=== PATIENT | female | born 1935 | race Caucasian/White ===

== ENCOUNTER 2022-11-25 00:23 | Day surgery (SDC) | payer OTHER ==
[2022-11-25 12:06] LABS: BASOPHILS ABSOLUTE AUTO 0.02 K/mm3 (0.00-0.23); BASOPHILS PERCENT AUTO 0 % (0-2); EOSINOPHILS ABSOLUTE AUTO 0.08 K/mm3 (0.00-0.68); EOSINOPHILS PERCENT AUTO 1 % (0-6); Hematocrit 28.9 % (33.0-51.0); Hemoglobin 9.3 g/dL (11.5-16.0); Mean Corpuscular HGB 33.7 pg (26.0-34.0); Mean Corpuscular HGB Conc 32.2 g/dL (31.5-36.5); Mean Corpuscular Volume 105 fL (80-100); Mean Platelet Volume 9.8 fL (9.1-12.4); Platelet Count 232 K/mm3 (150-400); RDW Coefficient Variation 23.9 % (11.7-14.2); RDW Standard Deviation 87.6 fL (35.1-46.3); Red Blood Cell Count 2.76 M/mm3 (3.80-5.20); White Blood Cell Count 10.22 K/mm3 (4.00-11.30)
[2022-11-25 12:07] LABS: IMMATURE GRAN ABSOLUTE AUTO 0.01 K/mm3 (0.00-0.10); IMMATURE GRAN PERCENT AUTO 0 % (0-1); LYMPHOCYTES ABSOLUTE AUTO 9.75 K/mm3 (0.84-5.20); LYMPHOCYTES PERCENT AUTO 95 % (21-46); MONOCYTES ABSOLUTE AUTO 0.02 K/mm3 (0.16-1.47); MONOCYTES PERCENT AUTO 0 % (4-13); NEUTROPHILS ABSOLUTE AUTO 0.34 K/mm3 (1.96-9.15); NEUTROPHILS PERCENT AUTO 3 % (41-73)
[2022-11-25] MEDS ORDERED: METF500 PO (12:12)
[2022-11-25] MEDS ORDERED: AMLO5 PO (12:13)
[2022-11-25] MEDS ORDERED: VENL37.5 PO (12:13)
[2022-11-25] MEDS ORDERED: PANT40 PO (12:13)
[2022-11-25 12:15] LABS: Albumin, Blood 2.7 g/dL (3.4-5.0); Albumin/Globulin Ratio 0.8 (0.8-1.8); Bilirubin, Total 0.5 mg/dL (0.1-1.0); Bun/Creatinine Ratio 21.8 (12.0-20.0); Calcium, Blood 8.7 mg/dL (8.5-10.1); Creatinine, Blood 1.42 mg/dL (0.40-1.00); Globulin, Blood 3.6 g/dL (2.2-4.0); Potassium, Blood 4.1 mmol/L (3.5-5.5); Total Protein, Blood 6.3 g/dL (6.4-8.2)
[2022-11-25] MEDS ORDERED: COD LIVER OIL PO (12:21)
[2022-11-25] MEDS ORDERED: TAFINLAR50 MG PO (12:22)
[2022-11-25] MEDS ORDERED: GLIP5 PO (12:22)
[2022-11-25] MEDS ORDERED: METO25ER PO (12:24)
[2022-11-25] MEDS ORDERED: SPIR25 PO (12:24)
[2022-11-25] MEDS ORDERED: PIOG15 PO (12:24)
[2022-11-25] MEDS ORDERED: THERA-D2000 UNIT PO (12:25)
[2022-11-25] MEDS ORDERED: ELIQUIS2.5 MG PO (12:25)
[2022-11-25] MEDS ORDERED: Vitamin B-12100 MCG PO (12:25)
[2022-11-25] MEDS ORDERED: LEVOTHYROXINE175 MC9 PO (12:26)
== END 2022-11-25 22:41 | disposition home or self-care (01) ==
LOC: ATC 00:23
PROVIDERS: Internal Medicine Hematology & Oncology
DX: C43.59 Malignant melanoma of other part of trunk (principal); I10 Essential (primary) hypertension; E11.9 Type 2 diabetes mellitus without complications; Z87.891 Personal history of nicotine dependence; Z88.8 Allergy status to other drugs, medicaments and biological substances; Z88.1 Allergy status to other antibiotic agents
CPT/HCPCS: 80053; 85025; J1642

== ENCOUNTER 2022-12-31 00:32 | Day surgery (SDC) | payer OTHER ==
[~2022-12-31 00:32] MED LIST: AMLO5 PO; COD LIVER OIL PO; ELIQUIS2.5 MG PO; GLIP5 PO; LEVOTHYROXINE175 MC9 PO; METF500 PO; METO25ER PO; PANT40 PO; PIOG15 PO; SPIR25 PO; TAFINLAR50 MG PO; THERA-D2000 UNIT PO; VENL37.5 PO; Vitamin B-12100 MCG PO
[2022-12-31 09:40] VITALS: BP 135/76
[2022-12-31 09:41] LABS: BASOPHILS ABSOLUTE AUTO 0.03 K/mm3 (0.00-0.23); BASOPHILS PERCENT AUTO 1 % (0-2); EOSINOPHILS ABSOLUTE AUTO 0.28 K/mm3 (0.00-0.68); EOSINOPHILS PERCENT AUTO 6 % (0-6); Hematocrit 31.7 % (33.0-51.0); Hemoglobin 10.3 g/dL (11.5-16.0); IMMATURE GRAN ABSOLUTE AUTO 0.01 K/mm3 (0.00-0.10); IMMATURE GRAN PERCENT AUTO 0 % (0-1); LYMPHOCYTES ABSOLUTE AUTO 2.54 K/mm3 (0.84-5.20); LYMPHOCYTES PERCENT AUTO 58 % (21-46); MONOCYTES ABSOLUTE AUTO 0.04 K/mm3 (0.16-1.47); MONOCYTES PERCENT AUTO 1 % (4-13); Mean Corpuscular HGB 35.8 pg (26.0-34.0); Mean Corpuscular HGB Conc 32.5 g/dL (31.5-36.5); Mean Corpuscular Volume 110 fL (80-100); Mean Platelet Volume 9.1 fL (9.1-12.4); NEUTROPHILS ABSOLUTE AUTO 1.49 K/mm3 (1.96-9.15); NEUTROPHILS PERCENT AUTO 34 % (41-73); Platelet Count 289 K/mm3 (150-400); RDW Coefficient Variation 17.9 % (11.7-14.2); RDW Standard Deviation 72.9 fL (35.1-46.3); Red Blood Cell Count 2.88 M/mm3 (3.80-5.20); White Blood Cell Count 4.39 K/mm3 (4.00-11.30)
[2022-12-31 10:02] LABS: Albumin, Blood 3.1 g/dL (3.4-5.0); Albumin/Globulin Ratio 0.8 (0.8-1.8); Bilirubin, Total 0.5 mg/dL (0.1-1.0); Bun/Creatinine Ratio 27.2 (12.0-20.0); Calcium, Blood 9.3 mg/dL (8.5-10.1); Creatinine, Blood 1.25 mg/dL (0.40-1.00); Globulin, Blood 3.8 g/dL (2.2-4.0); Potassium, Blood 4.4 mmol/L (3.5-5.5); Total Protein, Blood 6.9 g/dL (6.4-8.2)
[2022-12-31 12:58] LABS: International Normalized Ratio 1.03; Prothrombin Time Results 10.8 Sec (9.7-11.5)
== END 2022-12-31 09:45 | disposition home or self-care (01) ==
LOC: ATC 00:32
PROVIDERS: Internal Medicine Hematology & Oncology
DX: C43.59 Malignant melanoma of other part of trunk (principal); C77.3 Secondary and unspecified malignant neoplasm of axilla and upper limb lymph nodes; C78.89 Secondary malignant neoplasm of other digestive organs; C78.7 Secondary malignant neoplasm of liver and intrahepatic bile duct; C78.00 Secondary malignant neoplasm of unspecified lung; I10 Essential (primary) hypertension; E11.9 Type 2 diabetes mellitus without complications; Z87.891 Personal history of nicotine dependence; Z79.899 Other long term (current) drug therapy
CPT/HCPCS: 36591; 80053; 85025; 85610; 85730; J1642

== ENCOUNTER 2023-02-13 07:41 | Day surgery (SDC) | payer OTHER ==
[~2023-02-13] VITALS: Ht 167.6 cm; Wt 76.7 kg
--- NOTE | 2023-02-13 09:02 | NUR ---
DR. VAZQUEZ MET WITH PATIENT AND TALKED WITH THE SON. IT WAS DECIDED TO NOT PROCEED WITH THE PROCEDURE AT THIS TIME.
== END 2023-02-13 09:16 | disposition home or self-care (01) ==
LOC: ORSCMMR 07:41 → ORD 09:15 → ORSCMMR 09:16
DX: J91.0 Malignant pleural effusion (principal); Z53.9 Procedure and treatment not carried out, unspecified reason
CPT/HCPCS: 82947; J2704; J7120

== ENCOUNTER 2023-02-14 23:34 | Observation (INO) | payer OTHER ==
[~2023-02-14] VITALS: Ht 160 cm; Wt 74.5 kg
[2023-02-15 00:02] LABS: BASOPHILS ABSOLUTE AUTO 0.01 K/mm3 (0.00-0.23); BASOPHILS PERCENT AUTO 0 % (0-2); EOSINOPHILS ABSOLUTE AUTO 0.03 K/mm3 (0.00-0.68); EOSINOPHILS PERCENT AUTO 1 % (0-6); Hematocrit 31.5 % (33.0-51.0); Hemoglobin 10.3 g/dL (11.5-16.0); IMMATURE GRAN ABSOLUTE AUTO 0.01 K/mm3 (0.00-0.10); IMMATURE GRAN PERCENT AUTO 0 % (0-1); LYMPHOCYTES ABSOLUTE AUTO 1.22 K/mm3 (0.84-5.20); LYMPHOCYTES PERCENT AUTO 52 % (21-46); MONOCYTES ABSOLUTE AUTO 0.01 K/mm3 (0.16-1.47); MONOCYTES PERCENT AUTO 0 % (4-13); Mean Corpuscular HGB 35.6 pg (26.0-34.0); Mean Corpuscular HGB Conc 32.7 g/dL (31.5-36.5); Mean Corpuscular Volume 109 fL (80-100); Mean Platelet Volume 9.8 fL (9.1-12.4); NEUTROPHILS ABSOLUTE AUTO 1.06 K/mm3 (1.96-9.15); NEUTROPHILS PERCENT AUTO 45 % (41-73); Platelet Count 287 K/mm3 (150-400); RDW Coefficient Variation 12.5 % (11.7-14.2); RDW Standard Deviation 49.9 fL (35.1-46.3); Red Blood Cell Count 2.89 M/mm3 (3.80-5.20); White Blood Cell Count 2.34 K/mm3 (4.00-11.30)
[2023-02-15 00:44] LABS: Albumin, Blood 2.8 g/dL (3.4-5.0); Albumin/Globulin Ratio 0.7 (0.8-1.8); Bilirubin, Total 1.9 mg/dL (0.1-1.0); Bun/Creatinine Ratio 27.5 (12.0-20.0); Calcium, Blood 9.6 mg/dL (8.5-10.1); Creatinine, Blood 1.82 mg/dL (0.40-1.00); Globulin, Blood 3.8 g/dL (2.2-4.0); Potassium, Blood 6.3 mmol/L (3.5-5.5); Total Protein, Blood 6.6 g/dL (6.4-8.2)
[2023-02-15 00:59] LABS: Magnesium, Blood 1.6 mg/dL (1.6-2.4)
[2023-02-15 01:25] LABS: International Normalized Ratio 1.09; Prothrombin Time Results 11.4 Sec (9.7-11.5)
[2023-02-15 03:18] LABS: Automated BF RBC Count 0.139 M/mm3 (0-0); Automated BF WBC Count 0.966 K/mm3 (0-999)
[2023-02-15 03:19] LABS: Body Fluid WBC Count 966 /mm3 (0-999); RBC Count, Body Fluid 139000 /mm3 (0-0)
[2023-02-15 03:26] LABS: Glucose, Body Fluid 217 mg/dL; Protein, Body Fluid 3.8 g/dL
[2023-02-15 04:00] VITALS: BP 126/54
[2023-02-15 04:06] LABS: Appearance, Body Fluid Bloody (Clear); Color, Body Fluid Red (None-Yellow); Total Cell Count, Body Fluid 100
[2023-02-15 04:26] LABS: Lactate Dehydrogenase, Body Fl 87 U/L
--- NOTE | 2023-02-15 06:04 | NUR ---
RECEIVED PATIENT ALERT AND ORIENTED FROM THE ED, PIV SL, R SIDE POSTERIOR BACK SITE BANDAGE INTACT. SKIN WITH SCATTERED BRUISES AND MELENOMAS. NO PAIN REPOERTED, VSS, CONSULT CALLED INTO DR FISH OFFICE. UP TO BATHROOM WITH 1X ASSIST. CONT, BUT WEARS ATTENDS. NO OTHER ISSUES TO REPORT. WILL CONT TO MONITOR.
[2023-02-15 07:09] VITALS: BP 128/63
[2023-02-15 08:39] LABS: Bun/Creatinine Ratio 27.8 (12.0-20.0); Calcium, Blood 9.3 mg/dL (8.5-10.1); Creatinine, Blood 1.94 mg/dL (0.40-1.00); Potassium, Blood 5.9 mmol/L (3.5-5.5)
[2023-02-15 10:37] LABS: Source, Urine Clean Catch
[2023-02-15 10:58] LABS: Appearance, Urine Clear (Clear); Bilirubin, Urine Neg (Neg); Blood, Urine Neg (Neg); Color, Urine Yellow (P-Yellow); Glucose Qualitative, Urine Neg (Neg); Ketones, Urine Neg (Neg); Leukocyte Esterase, Urine Neg (Neg); Nitrite, Urine Neg (Neg); Protein, Urine 1+ (Neg); Specific Gravity, Urine 1.015 (1.003-1.022); Urobilinogen, Urine NORM (Normal)
--- NOTE | 2023-02-15 11:47 | NUR ---
CALL I RECEIVED A CALL FROM [facility] WHO REPORTED THAT DR HERNANDEZ, RADIOLOGIST, SAID THAT THORACENTESIS SHOULD NOT BE DONE TODAY AND SHOULD BE REEVALUATED TOMORROW. DR GARCIA CALLED AND NOTIFIED. NO NEW ORDERS.
--- NOTE | 2023-02-15 14:06 | NUR ---
DISCHARGE NOTE MS MCCLENDON HAS BEEN DISCHARGED FROM [facility]. HER DAUGHTER AND SON ARE AT BEDSIDE, THEY ALL VOICED UNDERSTANDING OF WRITTEN AND VERBAL DISCHARGE INSTRUCTIONS. FACE SHEET FAXED OVER TO [facility] FOR F/U THORACENTESIS, PLUS SON SAID HE WILL CALL UNHAIRING INSPECTOR ON FRIDAY MORNING. MS MCCLENDON SAID THAT HER BREATHING FEELS MUCH BETTER AFTER THORACENTESIS IN ER, HER APPETITE HAS IMPROVED AND SHE HAS BEEN ABLE TO REST. C/O MILD LEVEL GENERAL ACHES ONLY. PIV REMOVED INTACT. PT GETTING DRESSED READY TO LEAVE THE MEDICAL UNIT.
== END 2023-02-15 14:56 | disposition home or self-care (01) ==
LOC: ER 23:34 → MEDS 23:35
PROVIDERS: Internal Medicine; Student in an Organized Health Care Education/Training Program; ADMIT Internal Medicine
DX: J90 Pleural effusion, not elsewhere classified (principal); C91.10 Chronic lymphocytic leukemia of B-cell type not having achieved remission; Z88.8 Allergy status to other drugs, medicaments and biological substances; E03.9 Hypothyroidism, unspecified; R18.8 Other ascites; Z79.4 Long term (current) use of insulin; E87.5 Hyperkalemia; N18.9 Chronic kidney disease, unspecified; E11.22 Type 2 diabetes mellitus with diabetic chronic kidney disease; C43.9 Malignant melanoma of skin, unspecified
CPT/HCPCS: 32555; 36415; 71046; 80048; 80053; 82945; 82947; 83615; 83735; 84157; 85025; 85610; 89051; 93005; 93010; 94644; 94664; 96374; 96375; 99285-25; A9270; G0378; J0612; J1815; J7799

== ENCOUNTER 2023-03-07 01:43 | Day surgery (SDC) | payer OTHER ==
[~2023-03-07 01:43] MED LIST changes: +ALDACTONE25 MG; +PIOG15
[2023-03-07 16:23] VITALS: BP 146/74
[2023-03-07 17:34] LABS: International Normalized Ratio 1.02; Prothrombin Time Results 10.7 Sec (9.7-11.5)
[2023-03-07 17:40] LABS: Free Thyroxine 0.97 ng/dL (0.70-1.60)
[2023-03-07 17:41] LABS: Triiodothyronine, Free 0.93 pg/mL (2.18-3.98)
== END 2023-03-07 16:29 | disposition home or self-care (01) ==
LOC: ATC 01:43
PROVIDERS: Internal Medicine Hematology & Oncology
DX: C43.59 Malignant melanoma of other part of trunk (principal)
CPT/HCPCS: 36591; 84439; 84481; 85610; 85730; J1642

== ENCOUNTER 2023-03-08 17:50 | Emergency (ER) | payer OTHER ==
[~2023-03-08] VITALS: Ht 167.6 cm; Wt 78.0 kg
[2023-03-08 19:40] LABS: Hematocrit 29.9 % (33.0-51.0); Hemoglobin 10.3 g/dL (11.5-16.0); Mean Corpuscular HGB 35.5 pg (26.0-34.0); Mean Corpuscular HGB Conc 34.4 g/dL (31.5-36.5); Mean Corpuscular Volume 103 fL (80-100); Mean Platelet Volume 9.2 fL (9.1-12.4); Platelet Count 377 K/mm3 (150-400); RDW Coefficient Variation 13.3 % (11.7-14.2); RDW Standard Deviation 50.4 fL (35.1-46.3); White Blood Cell Count 1.63 K/mm3 (4.00-11.30)
[2023-03-08 19:45] VITALS: BP 166/77
[2023-03-08 19:54] LABS: International Normalized Ratio 1.04; Prothrombin Time Results 10.9 Sec (9.7-11.5)
[2023-03-08 20:00] LABS: Albumin, Blood 2.7 g/dL (3.4-5.0); Albumin/Globulin Ratio 0.8 (0.8-1.8); Bilirubin, Total 1.4 mg/dL (0.1-1.0); Bun/Creatinine Ratio 17.7 (12.0-20.0); Calcium, Blood 9.1 mg/dL (8.5-10.1); Creatinine, Blood 1.58 mg/dL (0.40-1.00); Globulin, Blood 3.6 g/dL (2.2-4.0); Potassium, Blood 5.6 mmol/L (3.5-5.5); Total Protein, Blood 6.3 g/dL (6.4-8.2)
[2023-03-08 20:03] LABS: BAND PERCENT MAN 5 % (0-8); BASOPHILS PERCENT MAN 0 % (0-2); EOSINOPHILS ABSOLUTE MAN 0.03 K/mm3 (0.00-0.68); EOSINOPHILS PERCENT MAN 2 % (0-6); LYMPHOCYTES % ATYPICAL MANUAL 1 % (0-0); LYMPHOCYTES ABSOLUTE MAN 0.99 K/mm3 (0.84-5.20); LYMPHOCYTES PERCENT MAN 60 % (21-46); MONOCYTES ABSOLUTE MAN 0.01 K/mm3 (0.16-1.47); MONOCYTES PERCENT MAN 1 % (4-13); MYELOCYTE ABSOLUTE MAN 0.03 K/mm3 (0.00-0.00); MYELOCYTE PERCENT MAN 2 % (0-0); NEUTROPHILS ABSOLUTE MAN 0.55 K/mm3 (1.96-9.15); SEG NEUTROPHILS PERCENT MAN 29 % (41-73); TOTAL CELLS COUNTED 100
== END 2023-03-08 22:29 | disposition home or self-care (01) ==
LOC: ER 17:50
PROVIDERS: Physician Assistant
DX: R18.8 Other ascites (principal); J90 Pleural effusion, not elsewhere classified; R06.02 Shortness of breath; C34.90 Malignant neoplasm of unspecified part of unspecified bronchus or lung; Z88.8 Allergy status to other drugs, medicaments and biological substances; Z88.1 Allergy status to other antibiotic agents; Z79.899 Other long term (current) drug therapy; Z79.84 Long term (current) use of oral hypoglycemic drugs; E03.9 Hypothyroidism, unspecified
CPT/HCPCS: 32554; 71046; 80053; 84484; 85025; 85610; 93005; 93010; 99284-25

== ENCOUNTER 2023-03-10 14:33 | Day surgery (SDC) | payer OTHER | END 2023-03-26 23:15 | disposition home or self-care (01) | LOC: US 14:33 | DX: C43.59 Malignant melanoma of other part of trunk (principal); R18.8 Other ascites | CPT/HCPCS: 32555; 49083; 71045 ==

== ENCOUNTER 2023-03-17 10:04 | Day surgery (SDC) | payer OTHER | END 2023-03-17 22:59 | disposition home or self-care (01) | LOC: US 10:04 | DX: J90 Pleural effusion, not elsewhere classified (principal); C43.59 Malignant melanoma of other part of trunk | CPT/HCPCS: 32555; 71045 ==

== ENCOUNTER 2023-03-27 11:36 | Inpatient (IN) | payer OTHER ==
[~2023-03-27] VITALS: Ht 167.6 cm; Wt 69.4 kg
[2023-03-27 13:15] LABS: Hematocrit 21.3 % (33.0-51.0); Hemoglobin 6.9 g/dL (11.5-16.0); Mean Corpuscular HGB 32.2 pg (26.0-34.0); Mean Corpuscular HGB Conc 32.4 g/dL (31.5-36.5); Mean Corpuscular Volume 100 fL (80-100); Mean Platelet Volume 9.7 fL (9.1-12.4); Platelet Count 276 K/mm3 (150-400); RDW Coefficient Variation 13.6 % (11.7-14.2); RDW Standard Deviation 49.1 fL (35.1-46.3); Red Blood Cell Count 2.14 M/mm3 (3.80-5.20); White Blood Cell Count 10.19 K/mm3 (4.00-11.30)
[2023-03-27 13:41] LABS: Albumin, Blood 1.3 g/dL (3.4-5.0); Albumin/Globulin Ratio 0.3 (0.8-1.8); Bilirubin, Total 0.3 mg/dL (0.1-1.0); Bun/Creatinine Ratio 31.5 (12.0-20.0); Calcium, Blood 8.8 mg/dL (8.5-10.1); Creatinine, Blood 1.81 mg/dL (0.40-1.00); Globulin, Blood 4.4 g/dL (2.2-4.0); Magnesium, Blood 2.1 mg/dL (1.6-2.4); Potassium, Blood 5.9 mmol/L (3.5-5.5); Total Protein, Blood 5.7 g/dL (6.4-8.2)
[2023-03-27 14:19] LABS: BASOPHILS PERCENT MAN 0 % (0-2); EOSINOPHILS PERCENT MAN 0 % (0-6); LYMPHOCYTES ABSOLUTE MAN 7.43 K/mm3 (0.84-5.20); LYMPHOCYTES PERCENT MAN 73 % (21-46); MONOCYTES PERCENT MAN 2 % (4-13); NEUTROPHILS ABSOLUTE MAN 2.54 K/mm3 (1.96-9.15); SEG NEUTROPHILS PERCENT MAN 25 % (41-73); TOTAL CELLS COUNTED 100
[2023-03-27 17:11] LABS: Source, Urine Clean Catch
[2023-03-27 17:20] LABS: Appearance, Urine Clear (Clear); Bilirubin, Urine Neg (Neg); Blood, Urine 1+ (Neg); Color, Urine Yellow (P-Yellow); Glucose Qualitative, Urine Neg (Neg); Ketones, Urine Neg (Neg); Leukocyte Esterase, Urine 1+ (Neg); Nitrite, Urine Neg (Neg); Protein, Urine 1+ (Neg); Specific Gravity, Urine 1.015 (1.003-1.022); Urobilinogen, Urine NORM (Normal)
[2023-03-27 18:07] LABS: Bacteria Many /hpf; Hyaline Casts 0-2 /lpf (0-2); Squamous Epithelial Cells Few /hpf (Few)
[2023-03-27 22:38] VITALS: BP 132/72
[2023-03-28 00:26] LABS: Base Excess Venous -6.1 mmol/L; PCO2 Venous 32.5 mmHg (38-42); pH Blood Venous 7.38 (7.34-7.37)
--- NOTE | 2023-03-28 00:41 | NUR ---
ADMISSION NOTE MS MCCLENDON WAS ADMITTED TO THE MEDICAL UNIT FROM THE ER AT 2232HRS. SHE WAS ABLE TO STAND UP TO TRANSFER TO THE BED WITH 1 PERSON ASSISTANCE AND VERBAL CUES. SHE IS VERY WEAK IN HER TRANSFER AND MOVES SLOWLY, DIFFICULTY PICKING UP HER LEGS AND REPOSITIONING IN BED WITHOUT ASSISTANCE. HER SON WAS PRESENT ON ADMISSION - SHE LIVES WITH HIM, NO HOME HEALTH. ON ROOM AIR, DOES NOT USE OXYGEN AT HOME. BILATERAL LEG EDEMA, RIGHT LEG WEEPING CLEAR FLUID, CLEAN ABSORBANT DRESSING APPLIED. PT ABLE TO ANSWER ALL ORIENTATION QUESTIONS AND SON SAID SHE HAS NOT BEEN CONFUSED UNLESS SOMETIMES FORGETFUL WHEN SHE'S TIRED. HE REPORTS THAT SHE HAS TRIPPED AND FALLEN AT HOME. BED ALARM IN USE. UP TO [facility] TO VOID X2 SINCE ARRIVAL WITH 1 PERSON ASSISTANCE. LEGALLY BLIND LEFT EYE. SCD SET UP IN ROOM BUT PT DECLINED THEM AT THIS TIME. TELEMETRY MONITORING SR AT 92 ON INITIATION. PT AND SON EDUCATED RE IGNITION SOURCES AND RISK FOR INJURY WHEN OXYGEN IN USE. PT AND SON DENY SMOKING, DENY HAVING IGNITION SOURCE AND VERBALISED UNDERSTANDING. REASSESSMENT ON Q1-2 HRLY ROUNDS. BED LOW, CALL LIGHT IN REACH.
[2023-03-28 04:27] VITALS: BP 130/66
--- NOTE | 2023-03-28 04:27 | NUR ---
SHIFT SUMMARY NO ACUTE CHANGES SINCE ADMISSION NOTE. MS MCCLENDON DID GET UP TO BSC A FEW TIMES OVERNIGHT, APPEARS COMFORTABLE PRESENTLY. BED LOW, BED ALARM ON, CALL LIGHT IN REACH.
[2023-03-28 07:24] VITALS: BP 117/59
[2023-03-28 09:32] LABS: Hematocrit 23.7 % (33.0-51.0); Mean Corpuscular HGB 32.7 pg (26.0-34.0); Mean Corpuscular HGB Conc 33.8 g/dL (31.5-36.5); Mean Corpuscular Volume 97 fL (80-100); Mean Platelet Volume 9.8 fL (9.1-12.4); Platelet Count 258 K/mm3 (150-400); RDW Coefficient Variation 14.8 % (11.7-14.2); RDW Standard Deviation 52.5 fL (35.1-46.3); Red Blood Cell Count 2.45 M/mm3 (3.80-5.20); White Blood Cell Count 10.29 K/mm3 (4.00-11.30)
[2023-03-28 09:43] LABS: Albumin, Blood 1.2 g/dL (3.4-5.0); Albumin/Globulin Ratio 0.3 (0.8-1.8); Bilirubin, Total 0.3 mg/dL (0.1-1.0); Bun/Creatinine Ratio 32.9 (12.0-20.0); Calcium, Blood 8.7 mg/dL (8.5-10.1); Creatinine, Blood 1.64 mg/dL (0.40-1.00); Globulin, Blood 4.3 g/dL (2.2-4.0); Magnesium, Blood 1.9 mg/dL (1.6-2.4); Potassium, Blood 4.5 mmol/L (3.5-5.5); Total Protein, Blood 5.5 g/dL (6.4-8.2)
[2023-03-28 15:20] VITALS: BP 131/62
--- NOTE | 2023-03-28 17:09 | NUR ---
SHIFT SUMMARY PT VSS THIS SHIFT, ACCESSED PORT RUNNING TKO MOST OF SHIFT, NO COMPLICATIONS. HAD THORECENTESIS WITHOUT COMPLICATIONS, REPORTED TO HAVE REMOVED 1.2 LITERS AND WAS SENT TO LAB. VOIDING WELL TO BSC. EDUCATED ON FIRE SAFETY, PATIENT AND VISITORS DENY USING OR HAVING ANY SOURCES OF IGNITION IN THE HOSPITAL. WILL CONTINUE TO MONITOR
[2023-03-28 20:32] VITALS: BP 121/63
[2023-03-29 02:29] VITALS: BP 123/57
--- NOTE | 2023-03-29 04:52 | NUR ---
SHIFT SUMMARY MS MCCLENDON WAS EDUCATED RE IGNITION SOURCES AND RISK FOR INJURY WHEN OXYGEN IS IN USE. SHE DENIED SMOKING AND VERBALISED UNDERSTANDING. RISK REASSESSMENT ON Q1-2 HOURLY ROUNDS. 1 PERSON ASSISTANCE UP TO BEDSIDE COMMODE. STEADY TRANSFER WITH ASSISTANCE. VOIDING WELL. WEEPING R LEG EDEMA WITH DRY DRESSING. PT HAS BEEN TURNING WELL SIDE TO SIDE OVERNIGHT. BANDAID LEFT BACK C,D,I FROM [facility] 03/28. C/O SOME RIGHT LUNG PAIN ON DEEP BREATH, NOT REQUIRING PAIN MEDICATIONS. BED LOW, CALL LIGHT IN REACH, BED ALARM ON.
[2023-03-29 05:32] LABS: BASOPHILS ABSOLUTE AUTO 0.01 K/mm3 (0.00-0.23); BASOPHILS PERCENT AUTO 0 % (0-2); EOSINOPHILS ABSOLUTE AUTO 0.04 K/mm3 (0.00-0.68); EOSINOPHILS PERCENT AUTO 0 % (0-6); Hematocrit 22.5 % (33.0-51.0); Hemoglobin 7.5 g/dL (11.5-16.0); Mean Corpuscular HGB 32.5 pg (26.0-34.0); Mean Corpuscular HGB Conc 33.3 g/dL (31.5-36.5); Mean Corpuscular Volume 97 fL (80-100); Mean Platelet Volume 9.4 fL (9.1-12.4); Platelet Count 226 K/mm3 (150-400); RDW Coefficient Variation 15.1 % (11.7-14.2); RDW Standard Deviation 53.3 fL (35.1-46.3); Red Blood Cell Count 2.31 M/mm3 (3.80-5.20)
[2023-03-29 05:34] LABS: IMMATURE GRAN ABSOLUTE AUTO 0.08 K/mm3 (0.00-0.10); IMMATURE GRAN PERCENT AUTO 1 % (0-1); LYMPHOCYTES ABSOLUTE AUTO 6.64 K/mm3 (0.84-5.20); LYMPHOCYTES PERCENT AUTO 69 % (21-46); MONOCYTES ABSOLUTE AUTO 0.03 K/mm3 (0.16-1.47); MONOCYTES PERCENT AUTO 0 % (4-13); NEUTROPHILS PERCENT AUTO 30 % (41-73)
[2023-03-29 06:11] LABS: Bun/Creatinine Ratio 31.7 (12.0-20.0); Calcium, Blood 8.6 mg/dL (8.5-10.1); Creatinine, Blood 1.83 mg/dL (0.40-1.00); Potassium, Blood 4.4 mmol/L (3.5-5.5)
[2023-03-29 07:59] VITALS: BP 118/63
[2023-03-29 08:47] LABS: Percent Saturation 17.4 % (15.0-50.0)
[2023-03-29 11:16] LABS: Hematocrit 23.2 % (33.0-51.0); Hemoglobin 7.7 g/dL (11.5-16.0)
[2023-03-29 15:57] VITALS: BP 125/69
--- NOTE | 2023-03-29 17:36 | NUR ---
pt having dinner with family and quality time will return.
--- NOTE | 2023-03-29 18:37 | NUR ---
SHIFT SUMMARY VENOUS US PERFORMED, DOC INFORMED OF RESULTS, HEPARIN DRIP ORDERED, NOT STARTED THIS SHIFT WAITING ON LABS AND DOSING. PORT CONTINUES TO BE ACCSSED, NO COMPLICATIONS. EDUCATED ON RISKS OF HEPARIN VS NO TREATMENT, EDUCATED ON FIRE SAFETY, DENIES HAVING ANY SOURCES OF IGNITION ON PERSON VISITORS DENY THE SAME. WILL CONTINUE TO MONITOR NEED GUAIAC STOOL SAMPLE COLLECTED.
[2023-03-29 18:56] LABS: International Normalized Ratio 1.07; Prothrombin Time Results 11.2 Sec (9.7-11.5)
[2023-03-29 19:49] VITALS: BP 124/60
[2023-03-30 04:59] VITALS: BP 126/58
[2023-03-30 05:11] LABS: BASOPHILS ABSOLUTE AUTO 0.02 K/mm3 (0.00-0.23); BASOPHILS PERCENT AUTO 0 % (0-2); EOSINOPHILS ABSOLUTE AUTO 0.06 K/mm3 (0.00-0.68); EOSINOPHILS PERCENT AUTO 1 % (0-6); Hematocrit 22.2 % (33.0-51.0); Hemoglobin 7.2 g/dL (11.5-16.0); Mean Corpuscular HGB 31.7 pg (26.0-34.0); Mean Corpuscular HGB Conc 32.4 g/dL (31.5-36.5); Mean Corpuscular Volume 98 fL (80-100); Mean Platelet Volume 9.4 fL (9.1-12.4); Platelet Count 220 K/mm3 (150-400); RDW Coefficient Variation 14.7 % (11.7-14.2); RDW Standard Deviation 53.1 fL (35.1-46.3); Red Blood Cell Count 2.27 M/mm3 (3.80-5.20); White Blood Cell Count 9.41 K/mm3 (4.00-11.30)
[2023-03-30 05:25] LABS: IMMATURE GRAN ABSOLUTE AUTO 0.09 K/mm3 (0.00-0.10); IMMATURE GRAN PERCENT AUTO 1 % (0-1); LYMPHOCYTES PERCENT AUTO 65 % (21-46); MONOCYTES ABSOLUTE AUTO 0.04 K/mm3 (0.16-1.47); MONOCYTES PERCENT AUTO 0 % (4-13); NEUTROPHILS PERCENT AUTO 33 % (41-73)
--- NOTE | 2023-03-30 05:31 | NUR ---
SHIFT SUMMARY REQUESTED ELECTROLYTIC ETCHER TO CALL TEAM PSYCHOLOGIST PROVIDER FOR PAIN MEDICATION, PT HAS BACK AND CHEST/ABDOMEN PAIN WHEN SHE TAKES A DEEP BREATH DUE TO HER ASCITES AND OTHER ONGOING ILLNESSES. PRN ORDERS OBTAINED. ULTRAM GIVEN X1, PT REPORTED THIS MEDICATION WAS MUCH MORE EFFECTIVE THAN TAKING TYLENOL LIKE SHE DID AT HOME. SHE WAS ABLE TO SLEEP MOST OF THE NIGHT. HEPARIN GTT STARTED AT THE BEGINNING OF SHIFT VIA MEDIPORT. LABS DRAWN, AWAITING RESULTS AND PHARMACY'S RECCOMMENDATIONS. Q1H FIRE SAFETY CHECKS COMPLETED.
[2023-03-30 05:40] LABS: Albumin, Blood 1.1 g/dL (3.4-5.0); Anion Gap 9 mmol/L (6-16); Blood Urea Nitrogen 53 mg/dL (8-24); Bun/Creatinine Ratio 37.3 (12.0-20.0); CO2, Blood 21 mmol/L (21-32); Calcium, Blood 8.3 mg/dL (8.5-10.1); Chloride, Blood 105 mmol/L (98-108); Creatinine, Blood 1.42 mg/dL (0.40-1.00); Glomerular Filtration Rate 36 (60-); Glucose, Blood 226 mg/dL (70-99); Phosphorus, Blood 3.7 mg/dL (2.5-4.9); Sodium, Blood 135 mmol/L (136-145)
--- NOTE | 2023-03-30 07:30 | NUR ---
ASSUMED CARE: PT RESTING IN BED, ON RA, NO TELE. HEPARIN GTT RUNNING AND RATE CONFIRMED WITH ORDERS. RIGHT LEG RED AND SWOLLEN. DENIES NEEDS OR CONCERNS AT THIS TIME.
[2023-03-30 07:46] VITALS: BP 126/67
--- NOTE | 2023-03-30 09:08 | NUR ---
PHYSICAL THERAPY AT BEDSIDE.
--- NOTE | 2023-03-30 10:32 | NUR ---
Call back - T/c from pt's daughter Ketty. She queried if pt had received [facility]. Door Attendant checked notes and with pt and services had not been rendered. Madison stated she would like [facility] as well. Father Manual was left a message concerning the request. If Father Manual unable this senior copywriter will contact Father Martínez. Call returned to Ketty @ [phone] and updated her. She verbalized gratitude for the callback.
--- NOTE | 2023-03-30 10:52 | NUR ---
fax sent to [facility] to two different numbers requesting records for pt's procedures, particularly IVC filter placement. awaiting return fax
[2023-03-30 12:12] LABS: Stool Occult Blood Guaiac 1 Neg (Neg)
--- NOTE | 2023-03-30 15:29 | NUR ---
IGNITION RISK: NO EVIDENCE OF CIGARRETTES, LIGHTERS OR MATCHES AT BEDSIDE AT THIS TIME
[2023-03-30 15:39] VITALS: BP 116/52
--- NOTE | 2023-03-30 15:39 | NUR ---
[facility] in to see pt today. they were requesting a oil program compliance specialist. will follow up with family on plan of care.
--- NOTE | 2023-03-30 18:32 | NUR ---
SHIFT SUMMARY: POSSIBLE DC TOMORROW. FAMILY AT BEDSIDE T/O DAY. HEPARIN GTT STOPPED AND ELIQUIS TO BE RESTARTED THIS EVENING. CONTINUING DIURESIS. NO ACUTE NEEDS OR CONCERNS AT THIS TIME.
[2023-03-30 20:39] VITALS: BP 136/67
[2023-03-31 04:17] VITALS: BP 119/72
--- NOTE | 2023-03-31 05:03 | NUR ---
ASSUMED CARE PT ASSISTED TO BATHROOM VIA WALKER DID VERY WELL C/O CHRONIC LEG PAIN, ASSISTED BACK TO BED ATTEMPTING TO GO BACK TO BED.
[2023-03-31 06:10] LABS: BASOPHILS ABSOLUTE AUTO 0.02 K/mm3 (0.00-0.23); BASOPHILS PERCENT AUTO 0 % (0-2); EOSINOPHILS ABSOLUTE AUTO 0.08 K/mm3 (0.00-0.68); EOSINOPHILS PERCENT AUTO 1 % (0-6); Hematocrit 22.7 % (33.0-51.0); Hemoglobin 7.3 g/dL (11.5-16.0); Mean Corpuscular HGB 31.7 pg (26.0-34.0); Mean Corpuscular HGB Conc 32.2 g/dL (31.5-36.5); Mean Corpuscular Volume 99 fL (80-100); Mean Platelet Volume 9.7 fL (9.1-12.4); Platelet Count 219 K/mm3 (150-400); RDW Coefficient Variation 14.7 % (11.7-14.2); RDW Standard Deviation 53.1 fL (35.1-46.3); White Blood Cell Count 9.78 K/mm3 (4.00-11.30)
[2023-03-31 06:11] LABS: IMMATURE GRAN PERCENT AUTO 1 % (0-1); LYMPHOCYTES PERCENT AUTO 64 % (21-46); MONOCYTES ABSOLUTE AUTO 0.04 K/mm3 (0.16-1.47); MONOCYTES PERCENT AUTO 0 % (4-13); NEUTROPHILS ABSOLUTE AUTO 3.24 K/mm3 (1.96-9.15); NEUTROPHILS PERCENT AUTO 33 % (41-73)
[2023-03-31 06:27] LABS: Albumin, Blood 1.2 g/dL (3.4-5.0); Anion Gap 10 mmol/L (6-16); Blood Urea Nitrogen 46 mg/dL (8-24); Bun/Creatinine Ratio 32.6 (12.0-20.0); CO2, Blood 21 mmol/L (21-32); Calcium, Blood 8.5 mg/dL (8.5-10.1); Chloride, Blood 104 mmol/L (98-108); Creatinine, Blood 1.41 mg/dL (0.40-1.00); Glomerular Filtration Rate 37 (60-); Glucose, Blood 201 mg/dL (70-99); Phosphorus, Blood 3.5 mg/dL (2.5-4.9); Potassium, Blood 3.9 mmol/L (3.5-5.5); Sodium, Blood 135 mmol/L (136-145)
--- NOTE | 2023-03-31 07:33 | NUR ---
ASSUMED CARE: PT RESTING QUIETLY IN BED. ON RA. DENIES NEEDS OR CONCERNS AT THIS TIME.
[2023-03-31 07:40] VITALS: BP 120/62
[2023-03-31] MEDS ORDERED: VISBIOME 112.51 EACH PO ×2 (10:08)
[2023-03-31] MEDS ORDERED: CEPH500 PO ×2 (10:08)
[2023-03-31] MEDS ORDERED: ACET325 PO ×2 (10:08)
--- NOTE | 2023-03-31 13:00 | NUR ---
DISCHARGE: MEDIPORT REMOVED PRIOR TO DISCHARGE. PT AND SON GIVEN INSTRUCTIONS REGARDING FOLLOW UP APPOINTMENTS AND MEDICATIONS. PROVIDED WITH PHONE NUMBERS FOR FOLLOW UP AND FURTHER QUESTIONS. DENIED QUESTIONS OR CONCERNS. ESCORTED OUT VIA WHEEL CHAIR BY HOSPITAL STAFF.
== END 2023-03-31 12:58 | disposition home health service (06) | DRG 841 ==
LOC: ER 11:36 → MEDS 11:37
PROVIDERS: Family Medicine; Internal Medicine; Nurse Practitioner Acute Care; Physician Assistant; Student in an Organized Health Care Education/Training Program; ADMIT Internal Medicine
PROC: 30233N1 Transfusion of Nonautologous Red Blood Cells into Peripheral Vein, Percutaneous Approach (ICD-10-PCS; principal; 2023-03-27)
PROC: 0W9B3ZZ Drainage of Left Pleural Cavity, Percutaneous Approach (ICD-10-PCS; 2023-03-28)
DX: C91.10 Chronic lymphocytic leukemia of B-cell type not having achieved remission (principal); E87.1 Hypo-osmolality and hyponatremia; E87.22 Chronic metabolic acidosis; N39.0 Urinary tract infection, site not specified; I82.431 Acute embolism and thrombosis of right popliteal vein; I82.451 Acute embolism and thrombosis of right peroneal vein; R18.0 Malignant ascites; J91.0 Malignant pleural effusion; D63.0 Anemia in neoplastic disease; C43.9 Malignant melanoma of skin, unspecified; E87.5 Hyperkalemia; D63.1 Anemia in chronic kidney disease; E03.9 Hypothyroidism, unspecified; N18.32 Chronic kidney disease, stage 3b; E11.22 Type 2 diabetes mellitus with diabetic chronic kidney disease; Z88.1 Allergy status to other antibiotic agents; Z88.8 Allergy status to other drugs, medicaments and biological substances
CPT/HCPCS: 32555; 36415; 36430; 71045; 71046; 76705; 80048; 80053; 80069; 81001; 82270; 82607; 82728; 82746; 82803; 82947; 83540; 83550; 83735; 83880; 84132; 85014; 85018; 85025; 85027; 85610; 85730; 86850; 86900; 86901; 86923; 87077; 87086; 87186; 93005; 93010; 93971; 96365; 96375; 96376; 97110; 97162; 99285-25; A9270; G0378; J0696; J1642; J1644; J1815; J1940; J7030; J7050; J7799; P9016

== ENCOUNTER 2023-04-01 19:01 | Emergency (ER) | payer OTHER ==
[~2023-04-01] VITALS: Ht 167.6 cm; Wt 74.4 kg
[~2023-04-01 19:01] MED LIST changes: +ACET325 PO; +CEPH500 PO; +VISBIOME 112.51 EACH PO
[2023-04-01 20:03] LABS: Hematocrit 24.6 % (33.0-51.0); Hemoglobin 7.9 g/dL (11.5-16.0); Mean Corpuscular HGB 32.2 pg (26.0-34.0); Mean Corpuscular HGB Conc 32.1 g/dL (31.5-36.5); Mean Corpuscular Volume 100 fL (80-100); Mean Platelet Volume 9.5 fL (9.1-12.4); Platelet Count 228 K/mm3 (150-400); RDW Coefficient Variation 14.6 % (11.7-14.2); RDW Standard Deviation 53.7 fL (35.1-46.3); Red Blood Cell Count 2.45 M/mm3 (3.80-5.20); White Blood Cell Count 11.52 K/mm3 (4.00-11.30)
[2023-04-01 20:27] LABS: Albumin, Blood 1.4 g/dL (3.4-5.0); Albumin/Globulin Ratio 0.3 (0.8-1.8); Bilirubin, Total 0.3 mg/dL (0.1-1.0); Bun/Creatinine Ratio 29.6 (12.0-20.0); Calcium, Blood 8.7 mg/dL (8.5-10.1); Creatinine, Blood 1.79 mg/dL (0.40-1.00); Globulin, Blood 4.4 g/dL (2.2-4.0); Potassium, Blood 4.2 mmol/L (3.5-5.5); Total Protein, Blood 5.8 g/dL (6.4-8.2)
[2023-04-01 20:45] LABS: BASOPHILS PERCENT MAN 0 % (0-2); EOSINOPHILS PERCENT MAN 0 % (0-6); LYMPHOCYTES % ATYPICAL MANUAL 2 % (0-0); LYMPHOCYTES ABSOLUTE MAN 8.29 K/mm3 (0.84-5.20); LYMPHOCYTES PERCENT MAN 70 % (21-46); MONOCYTES ABSOLUTE MAN 0.23 K/mm3 (0.16-1.47); MONOCYTES PERCENT MAN 2 % (4-13); NEUTROPHILS ABSOLUTE MAN 2.99 K/mm3 (1.96-9.15); SEG NEUTROPHILS PERCENT MAN 26 % (41-73); TOTAL CELLS COUNTED 100
[2023-04-02] VITALS: BP 121/60
[2023-04-02] MEDS ORDERED: OXAYDO5 M1 PO (01:43)
[2023-04-02] MEDS ORDERED: XARELTO1 EAC1 PO (01:43)
== END 2023-04-02 02:38 | disposition home or self-care (01) ==
LOC: ER 19:01
PROVIDERS: Student in an Organized Health Care Education/Training Program
DX: I82.431 Acute embolism and thrombosis of right popliteal vein (principal); C43.9 Malignant melanoma of skin, unspecified; C91.10 Chronic lymphocytic leukemia of B-cell type not having achieved remission; Z88.8 Allergy status to other drugs, medicaments and biological substances; Z88.1 Allergy status to other antibiotic agents; Z79.899 Other long term (current) drug therapy; E03.9 Hypothyroidism, unspecified; N18.30 Chronic kidney disease, stage 3 unspecified; E11.22 Type 2 diabetes mellitus with diabetic chronic kidney disease
CPT/HCPCS: 80053; 85025; 96374; 99283-25; A9270; J1170; J1642

== ENCOUNTER 2023-04-04 10:54 | Emergency (ER) | payer MEDICARE, OTHER ==
[~2023-04-04] VITALS: Ht 167.6 cm; Wt 72.6 kg
[~2023-04-04 10:54] MED LIST changes: +OXAYDO5 M1 PO; +XARELTO1 EAC1 PO
[2023-04-04 13:14] LABS: Hematocrit 27.3 % (33.0-51.0); Hemoglobin 8.3 g/dL (11.5-16.0); Mean Corpuscular HGB 31.9 pg (26.0-34.0); Mean Corpuscular HGB Conc 30.4 g/dL (31.5-36.5); Mean Platelet Volume 10.6 fL (9.1-12.4); NRBC ABSOLUTE 0.03 K/mm3 (0.00-0.02); NRBC Auto 0.2 /100 WBC (0.0-0.2); Platelet Count 187 K/mm3 (150-400); RDW Coefficient Variation 14.9 % (11.7-14.2); RDW Standard Deviation 57.3 fL (35.1-46.3); White Blood Cell Count 15.65 K/mm3 (4.00-11.30)
[2023-04-04 13:45] LABS: Albumin, Blood 1.2 g/dL (3.4-5.0); Albumin/Globulin Ratio 0.3 (0.8-1.8); Bilirubin, Direct 0.2 mg/dL (0.0-0.3); Bilirubin, Indirect 0.1 mg/dL (0.1-0.7); Bilirubin, Total 0.3 mg/dL (0.1-1.0); Globulin, Blood 4.5 g/dL (2.2-4.0); Magnesium, Blood 2.1 mg/dL (1.6-2.4); Phosphorus, Blood 7.5 mg/dL (2.5-4.9); Total Protein, Blood 5.7 g/dL (6.4-8.2)
[2023-04-04 13:46] LABS: BAND PERCENT MAN 1 % (0-8); BASOPHILS PERCENT MAN 0 % (0-2); EOSINOPHILS PERCENT MAN 0 % (0-6); LYMPHOCYTES PERCENT MAN 99 % (21-46); MONOCYTES PERCENT MAN 0 % (4-13); TOTAL CELLS COUNTED 100
[2023-04-04 14:03] LABS: IMMATURE GRAN PERCENT AUTO 0 % (0-1); LYMPHOCYTES ABSOLUTE AUTO 15.18 K/mm3 (0.84-5.20); LYMPHOCYTES PERCENT AUTO 97 % (21-46); MONOCYTES ABSOLUTE AUTO 0.03 K/mm3 (0.16-1.47); MONOCYTES PERCENT AUTO 0 % (4-13); Mean Corpuscular Volume 105 fL (80-100); NEUTROPHILS ABSOLUTE AUTO 0.43 K/mm3 (1.96-9.15); NEUTROPHILS PERCENT AUTO 3 % (41-73)
[2023-04-04 14:04] LABS: NEUTROPHILS ABSOLUTE MAN 0.15 K/mm3 (1.96-9.15); SEG NEUTROPHILS PERCENT MAN 0 % (41-73); Salicylate 1.7 mg/dL (2.8-20.0)
[2023-04-04 14:05] LABS: International Normalized Ratio 2.06; Prothrombin Time Results 20.8 Sec (9.7-11.5)
[2023-04-04 15:24] LABS: PCO2 Venous 28.5 mmHg (38-42); pH Blood Venous 6.98 (7.34-7.37)
[2023-04-04 15:26] LABS: Base Excess Venous -24.9 mmol/L
[2023-04-04 15:27] LABS: Bicarbonate Venous 7.5 mmol/L (24.0-30.0)
[2023-04-04 15:53] LABS: Influenza A, PCR NEGATIVE (NEGATIVE); Influenza B, PCR NEGATIVE (NEGATIVE); Resp Syncytial Virus, PCR NEGATIVE (NEGATIVE); SARS-Cov-2 (COVID-19) PCR, MMC NEGATIVE (NEGATIVE)
[2023-04-04 17:17] VITALS: BP 87/49
== END 2023-04-04 19:54 ==
LOC: ER 10:54
PROVIDERS: Emergency Medicine
DX: R57.9 Shock, unspecified (principal); Z51.5 Encounter for palliative care; R65.10 Systemic inflammatory response syndrome (SIRS) of non-infectious origin without acute organ dysfunction; J96.01 Acute respiratory failure with hypoxia; G92.8 Other toxic encephalopathy; N17.9 Acute kidney failure, unspecified; D63.8 Anemia in other chronic diseases classified elsewhere; I82.401 Acute embolism and thrombosis of unspecified deep veins of right lower extremity; E03.9 Hypothyroidism, unspecified; E11.22 Type 2 diabetes mellitus with diabetic chronic kidney disease; N18.30 Chronic kidney disease, stage 3 unspecified; Z20.822 Contact with and (suspected) exposure to COVID-19; Z85.6 Personal history of leukemia; Z88.8 Allergy status to other drugs, medicaments and biological substances; Z88.3 Allergy status to other anti-infective agents; Z88.1 Allergy status to other antibiotic agents; Z79.01 Long term (current) use of anticoagulants; Z86.718 Personal history of other venous thrombosis and embolism
CPT/HCPCS: 0241U; 36415; 36556; 70450; 71045; 71260; 80076; 82140; 82803; 83605; 83735; 83880; 84100; 84439; 84443; 84484; 85025; 85610; 87040; 87077; 87186; 93005; 93010; 96365-59; 96366-59; 96368; 96375-59; 99291-25; 99292; C1751; G0480; J0171; J0461; J2310; J2543; J3370; J3475; J7030; J7050; J7060; P9047; Q9967